=== PATIENT | female | born 1965 | race Caucasian/White ===

== ENCOUNTER 2018-06-20 15:48 | Emergency (ER) | payer MEDICAID ==
[~2018-06-20] VITALS: Ht 154.9 cm; Wt 73.2 kg
[~2018-06-20 15:48] MED LIST: ALPR0.25 PO; FAMO20TA37 PO; HYDR-3237 PO; [UNRECOGNIZED DRUG - CODE] PO
[2018-06-20 15:54] VITALS: BP 146/82
[2018-06-20] MEDS ORDERED: LIDOCAINE-MPF 1%, 5ML INFIL ONE (16:00)
[2018-06-20] MEDS ORDERED: LIDOCAINE-MPF 2%, 2ML ONE (17:58)
== END 2018-06-20 18:48 | disposition home or self-care (01) ==
LOC: ED 18:47
DX: N61.1 Abscess of the breast and nipple (principal)
CPT/HCPCS: 10060; 76642; 99284

== ENCOUNTER 2018-06-22 13:25 | Emergency (ER) | payer MEDICAID ==
[~2018-06-22] VITALS: Ht 157.5 cm; Wt 72.9 kg
[2018-06-22 13:29] VITALS: BP 135/72
[2018-06-22] MEDS ORDERED: CEFTRIAXONE 1,000 MG ONE (14:00)
[2018-06-22] MEDS ORDERED: CEFTRIAXONE 1,000 MG IM ONE (14:00)
[2018-06-22] MEDS ORDERED: LIDOCAINE-MPF 2%, 2ML ONE (14:03)
== END 2018-06-22 14:13 ==
LOC: ED 14:07
DX: Z48.01 Encounter for change or removal of surgical wound dressing (principal)
CPT/HCPCS: 96372; 99283; J0696

== ENCOUNTER 2019-10-28 11:40 | Emergency (ER) | payer MEDICAID ==
[~2019-10-28] VITALS: Ht 154.9 cm; Wt 68.0 kg
--- NOTE | 2019-10-28 11:59 | NUR ---
PT AMBULATED BACK TO ROOM WITHOUT DIFFICULTY.
--- NOTE | 2019-10-28 12:15 | NUR ---
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 REPORTS IT MAY BE D/T MUSCLE PAIN. PT ALSO REPORTS A FOUL SMELL & DISCHARGE THAT SHE RECENTLY NOTICED IN HER [employer]. PT STATES SHE "SWEATS A LOT" IN THAT AREA. NO SIGNS OF TRAUMA OR INFECTION NOTED. ERP AT BS NOW.
[2019-10-28 12:33] LABS: MICROSCOPIC NOT IND
[2019-10-28 12:42] LABS: BASOPHILS # (AUTO) 0.06 x10^3/uL (0-0.1); BASOPHILS % (AUTO) 1 % (0-1); EOSINOPHILS # (AUTO) 0.15 x10^3/uL (0-0.4); EOSINOPHILS % (AUTO) 1 % (1-7); LYMPHOCYTES # (AUTO) 2.78 x10^3/uL (1-3.4); LYMPHOCYTES % (AUTO) 23 % (22-44); MD NO; MEAN CORPUSCULAR HEMOGLOBIN 31.2 pg (27.0-34.8); MEAN CORPUSCULAR HGB CONC 33.9 g/dL (32.4-35.8); MEAN CORPUSCULAR VOLUME 91.9 fL (80-100); MEAN PLATELET VOLUME 9.6 fL (7.4-10.4); MONOCYTES # (AUTO) 0.64 x10^3/uL (0.2-0.8); MONOCYTES % (AUTO) 5 % (2-9); NEUTROPHILS # (AUTO) 8.67 x10^3/uL (1.8-6.8); NEUTROPHILS % (AUTO) 71 % (42-75); PLATELET COUNT 271 x10^3/uL (130-400); RED BLOOD COUNT 4.73 x10^6/uL (3.82-5.3); RED CELL DISTRIBUTION WIDTH 12.4 % (9.6-15.2)
[2019-10-28 12:43] LABS: CULTURE INDICATED? NO
[2019-10-28 12:52] LABS: ALANINE AMINOTRANSFERASE 24 U/L (12-78); ALBUMIN 3.8 g/dL (3.4-5.0); ANION GAP 4 mmol/L (5-15); CALCIUM 8.8 mg/dL (8.5-10.1); CHLORIDE 109 mmol/L (98-107); CREATININE 0.65 mg/dL (0.55-1.02)
[2019-10-28 12:54] LABS: ALKALINE PHOSPHATASE 82 U/L (45-117); BILIRUBIN,TOTAL 0.2 mg/dL (0.2-1.0); TOTAL PROTEIN 7.6 g/dL (6.4-8.2)
[2019-10-28 13:48] VITALS: BP 125/76
--- NOTE | 2019-10-28 13:49 | NUR ---
PT AMBULATED TO BR WITHOUT DIFFICULTY.
--- NOTE | 2019-10-28 13:53 | NUR ---
ERP AT FOR RECHECK.
--- NOTE | 2019-10-28 14:17 | NUR ---
D/C INSTRUCTIONS, MEDS, CLEAR LIQUID DIET & F/U APPT RV'WD WITH PT, SHE VERBALIZES UNDERSTANDING. PT AMBULATED OUT OF ED WITHOUT DIFFICULTY.
== END 2019-10-28 14:19 | disposition home or self-care (01) ==
LOC: ED 14:00
DX: R10.30 Lower abdominal pain, unspecified (principal); R74.8 Abnormal levels of other serum enzymes; R79.9 Abnormal finding of blood chemistry, unspecified; F17.200 Nicotine dependence, unspecified, uncomplicated; Z90.710 Acquired absence of both cervix and uterus; Z90.49 Acquired absence of other specified parts of digestive tract
CPT/HCPCS: 36415; 80053; 81003; 83690; 85025; 99283

== ENCOUNTER 2021-04-11 20:11 | Emergency (ER) | payer MEDICAID ==
[2021-04-11 20:14] VITALS: BP 117/75
== END 2021-04-11 20:47 | disposition home or self-care (01) ==
LOC: ED 20:20
DX: J45.30 Mild persistent asthma, uncomplicated (principal); Z76.0 Encounter for issue of repeat prescription
CPT/HCPCS: 99281